=== PATIENT | female | born 1990 | race Caucasian/White ===

== ENCOUNTER 2022-10-13 20:36 | Emergency (ER) | payer MEDICAID ==
[~2022-10-13] VITALS: Ht 165.1 cm; Wt 80.0 kg
[~2022-10-13 20:36] MED LIST: NO HOME MEDS
[2022-10-13 21:35] VITALS: BP 142/97
[2022-10-13] MEDS ORDERED: diazepam inj 5 MG/ML inj. IV ONE (22:45)
[2022-10-13] MEDS ORDERED: ringers solution, lacted 1,000 ML IV ONE (22:45)
[2022-10-13 23:09] LABS: BASOPHILS # (AUTO) 0.1 X10'3 (0-0.2); BASOPHILS % (AUTO) 0.9 % (0-1); EOSINOPHILS % (AUTO) 0.4 % (0-6); HEMATOCRIT 43.5 % (35.0-45.0); HEMOGLOBIN 14.5 g/dl (12.0-16.0); LYMPHOCYTES # (AUTO) 3.8 X10'3 (1.1-4.8); LYMPHOCYTES % (AUTO) 52.5 % (21-51); MEAN CORPUSCULAR HEMOGLOBIN 30.2 PG (27.0-31.0); MEAN CORPUSCULAR HGB CONC 33.3 g/dL (33.0-36.5); MEAN CORPUSCULAR VOLUME 90.7 FL (78-98); MEAN PLATELET VOLUME 9.1 FL (7.4-10.4); MONOCYTES # (AUTO) 0.4 X10'3 (0-0.9); MONOCYTES % (AUTO) 5.8 % (2-12); NEUTROPHILS # (AUTO) 2.9 X10'3 (1.8-7.7); NEUTROPHILS % (AUTO) 40.4 % (42-75); PLATELET COUNT 425 X10'3 (140-440); RED CELL DISTRIBUTION WIDTH 14.7 % (11.5-14.5); WHITE BLOOD COUNT 7.2 X10'3 (4.5-11.0)
[2022-10-13 23:21] LABS: ALANINE AMINOTRANSFERASE 81 U/L (12-78); ALBUMIN 4.3 G/DL (3.4-5.0); ALBUMIN/GLOBULIN RATIO 1.3 (1.1-1.5); ALKALINE PHOSPHATASE 147 IU/L (46-116); ANION GAP 14 (8-16); ASPARTATE AMINO TRANSFERASE 86 U/L (10-37); BILIRUBIN,TOTAL 0.6 MG/DL (0.1-1.0); BLOOD UREA NITROGEN 17 MG/DL (7-18); BUN/CREATININE RATIO 22.1 (6.6-38.0); CALCIUM 8.6 MG/DL (8.5-10.1); CHLORIDE 100 MMOL/L (99-107); CREATININE 0.77 MG/DL (0.40-0.90); GLUCOSE 125 MG/DL (70-104); POTASSIUM 4.2 MMOL/L (3.5-5.1); SODIUM 139 MMOL/L (135-145); TOTAL CARBON DIOXIDE 25.5 MMOL/L (24-32); TOTAL PROTEIN 7.7 G/DL (6.4-8.2); eGFR 86 ML/MIN
[2022-10-13 23:57] LABS: PLATELET ESTIMATE NORMAL; SMUDGE CELLS FEW; STOMATOCYTES 1+; TOTAL CELLS COUNTED 100
[2022-10-14] MEDS ORDERED: CHLO25CA10 PO (00:48)
== END 2022-10-14 01:18 | disposition home or self-care (01) ==
LOC: ER 20:37
DX: F10.939 Alcohol use, unspecified with withdrawal, unspecified (principal); Z88.2 Allergy status to sulfonamides; Z88.8 Allergy status to other drugs, medicaments and biological substances; Z79.899 Other long term (current) drug therapy; Y90.9 Presence of alcohol in blood, level not specified
CPT/HCPCS: 36415; 80053; 85007; 85025; 96374; 99283; J3360; J7120

== ENCOUNTER 2023-04-11 11:11 | Inpatient (IN) | payer MEDICAID ==
[~2023-04-11] VITALS: Ht 165.1 cm; Wt 89.8 kg
[~2023-04-11 11:11] MED LIST changes: +CHLO25CA10 PO
[2023-04-11 11:57] LABS: BASOPHILS # (AUTO) 0.1 X10'3 (0-0.2); BASOPHILS % (AUTO) 1.2 % (0-1); EOSINOPHILS % (AUTO) 0.1 % (0-6); HEMATOCRIT 41.4 % (35.0-45.0); HEMOGLOBIN 13.8 g/dl (12.0-16.0); LYMPHOCYTES # (AUTO) 1.7 X10'3 (1.1-4.8); LYMPHOCYTES % (AUTO) 28.2 % (21-51); MEAN CORPUSCULAR HEMOGLOBIN 28.2 PG (27.0-31.0); MEAN CORPUSCULAR HGB CONC 33.2 g/dL (33.0-36.5); MEAN CORPUSCULAR VOLUME 84.8 FL (78-98); MEAN PLATELET VOLUME 9.4 FL (7.4-10.4); MONOCYTES # (AUTO) 0.6 X10'3 (0-0.9); MONOCYTES % (AUTO) 9.5 % (2-12); NEUTROPHILS # (AUTO) 3.7 X10'3 (1.8-7.7); PLATELET COUNT 385 X10'3 (140-440); RED BLOOD COUNT 4.88 X10'6 (4.20-5.60); RED CELL DISTRIBUTION WIDTH 15.7 % (11.5-14.5); WHITE BLOOD COUNT 6.1 X10'3 (4.5-11.0)
[2023-04-11 12:17] LABS: ALANINE AMINOTRANSFERASE 102 U/L (12-78); ALBUMIN 4.2 G/DL (3.4-5.0); ALBUMIN/GLOBULIN RATIO 0.9 (1.1-1.5); ALKALINE PHOSPHATASE 134 IU/L (46-116); ANION GAP 19 (8-16); ASPARTATE AMINO TRANSFERASE 128 U/L (10-37); BILIRUBIN,TOTAL 0.4 MG/DL (0.1-1.0); BLOOD UREA NITROGEN 5 MG/DL (7-18); BUN/CREATININE RATIO 6.5 (10.0-20.0); CALCIUM 9.5 MG/DL (8.5-10.1); CHLORIDE 98 MMOL/L (99-107); CREATININE 0.77 MG/DL (0.40-0.90); GLUCOSE 124 MG/DL (70-104); POTASSIUM 3.5 MMOL/L (3.5-5.1); SODIUM 140 MMOL/L (135-145); eCRCL 92 ML/MIN; eGFR 85 ML/MIN
[2023-04-11 12:28] LABS: ETHANOL 237 MG/DL (<10); THYROID STIMULATING HORMONE 2.32 ulU/ml (0.34-4.50)
[2023-04-11 13:20] LABS: URINE HCG NEGATIVE (NEG)
[2023-04-11 13:25] LABS: BILIRUBIN,URINE NEGATIVE (Neg); CLARITY,URINE CLOUDY (Clear); COLOR,URINE YELLOW (Yellow); GLUCOSE, URINE NEGATIVE (Neg); KETONES,URINE TRACE mg/dl (Neg); LEUKOCYTE ESTERASE ,URINE NEGATIVE (Neg); NITRITES, URINE POSITIVE (Neg); OCCULT BLOOD,URINE SMALL (Neg); PROTEIN,URINE 100 mg/dl (Neg); UROBILINOGEN,URINE 0.2 E.U/dL (0.2-1.0)
[2023-04-11 13:28] LABS: URINE AMPHETAMINE SCREEN NEGATIVE (Neg); URINE BARBITUATE SCREEN NEGATIVE (Neg); URINE BENZODIAZEPINES SCREEN NEGATIVE (Neg); URINE CANNABINOID SCREEN NEGATIVE (Neg); URINE COCAINE SCREEN NEGATIVE (Neg); URINE METHADONE SCREEN NEGATIVE (Neg); URINE OPIATE SCREEN NEGATIVE (Neg); URINE PHENCYCLIDINE SCREEN NEGATIVE (Neg)
[2023-04-11] MEDS ORDERED: LORazepam 1 MG tablet PO ONE (13:30)
--- NOTE | 2023-04-11 13:35 | NUR ---
Pt currently verbally expressing feelings of detox, pt showing signs of anxiety. Spoke with Dr Eddy verbal given for po ativan.
[2023-04-11 13:57] LABS: UA COLLECTION TYPE CLN CATCH MIDSTREAM
[2023-04-11 13:58] LABS: MUCUS STRANDS MODERATE /LPF (Neg); SQUAMOUS EPITHELIAL CELL,UR MODERATE /LPF (FEW)
[2023-04-11 13:59] LABS: BACTERIA,URINE 2+ /HPF (Neg); RBC,URINE 0-2 /HPF (0-2)
[2023-04-11] MEDS ORDERED: FOSFOMYCIN TROMETHAMINE 3 GM PACKET PO ONE (14:05)
--- NOTE | 2023-04-11 16:55 | NUR ---
Pt. was transferred to the unit accompanied by Dunia. She is in green scrubs and sitting up quietly in bed at this time. Pt. was provided with ice water and provided education by this manual writer on the importance of fluids to help flush out alcohol. Pt. reported understanding.
--- NOTE | 2023-04-11 17:44 | NUR ---
Pt. is sitting up eating dinner at this time.
[2023-04-11] MEDS ORDERED: normal saline 1000ml 1,000 ML IV ONE (18:00)
[2023-04-11] MEDS ORDERED: LORazepam 2 mg/ml vial IV ONE ×2 (18:00→18:25)
[2023-04-11] MEDS ORDERED: folic acid 1mg/0.2ml inj IV ONE (18:00)
[2023-04-11] MEDS ORDERED: thiamine 100mg/ml 2ml inj. IV ONE (18:00)
--- NOTE | 2023-04-11 18:17 | NUR ---
Pt. is c/o and exhibiting s/s of alcohol withdrawal AEB bilateral upper extremity tremors, restlessness, sweating, and an elevated blood pressure and pulse of 122. This was endorsed to ALEXSANDER Burleson who ordered IV normal saline, 2mg of IV Ativan, 1mg of folic acid IV, and thiamine 100mg IV. This was endorsed to Marshal aguilar. Pt. reports understanding and is in agreeance with plan.
--- NOTE | 2023-04-11 19:00 | NUR ---
The patient is resting on her bed. She is tremulous, anxious and HR in the 140's when up to use the bathroom. IV placed in the right hand 22 gauge after 5 unsuccessful attempts. She reports she has been very depressed and has not been sleeping well. She reports her energy level is low and that she has not showered for several days. She has been drinking daily and her BA on arrival to the ER was 0.237
[2023-04-11] MEDS ORDERED: SERT100T PO (21:23)
[2023-04-11] MEDS ORDERED: LORazepam 1 MG tablet PO PRN (22:00)
--- NOTE | 2023-04-11 22:14 | NUR ---
The patient has been accepted to [facility]
[2023-04-11] MEDS ORDERED: mag hydrox/Alum hydrox/simeth 30ml oral suspension PO PRN (22:40)
[2023-04-11] MEDS ORDERED: magnesium hydroxide 30ml (MOM) UD suspension PO PRN (22:40)
[2023-04-11] MEDS ORDERED: acetaminophen 325mg tablet PO PRN ×2 (22:40)
[2023-04-11] MEDS ORDERED: loperamide 2mg capsule PO PRN (22:40)
[2023-04-11 23:36] VITALS: RESP 18; O2SAT 99
[2023-04-11] MEDS: LORazepam 0.5 MG tablet PO PRN (23:43)
[2023-04-11] MEDS: traZODone 50mg tablet PO PRN (23:43)
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
[2023-04-12 07:00] VITALS: BP 132/100; PULSE 95; RESP 14; TEMP 98.8; O2SAT 98
[2023-04-12] MEDS ORDERED: sertraline 50mg tablet PO SCH (08:00)
[2023-04-12] MEDS: LORazepam 0.5 MG tablet PO PRN ×3 (08:33→20:44)
[2023-04-12] MEDS: thiamine 100mg tablet PO SCH ×2 (08:33→20:44)
[2023-04-12] MEDS: folic acid 1mg tablet PO SCH (08:33)
[2023-04-12] MEDS: multivitamins, therapeutics tablet PO SCH (08:33)
[2023-04-12 09:10] LABS: CHOLESTEROL 258 MG/DL (0-200); LDL CHOLESTEROL 61 MG/DL (50-100); TRIGLYCERIDES 56 MG/DL (20-135)
[2023-04-12 09:32] LABS: HEMOGLOBIN A1C 5.1 % (4.5-6.2)
[2023-04-12 09:43] LABS: HDL CHOLESTEROL > 155 MG/DL (35-60)
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
[2023-04-12 19:00] VITALS: BP 142/83; PULSE 101; RESP 14; TEMP 98.4; O2SAT 98
[2023-04-12] MEDS ORDERED: ondansetron 4mg rapidly disintigrating tab PO ONE (19:25)
[2023-04-12] MEDS ORDERED: LORazepam 0.5 MG tablet PO ONE (20:30)
[2023-04-12] MEDS: traZODone 50mg tablet PO PRN (20:44)
[2023-04-13] MEDS ORDERED: traZODone 50mg tablet PO ONE (00:10)
--- NOTE | 2023-04-13 03:17 | NUR ---
RN PROGRESS NOTE: LEGAL HOLD: 5150 for DTS PROBLEM: Client reported drinking 750 ml daily. Her last drink was 48 hours ago. She has a history of depression and a recent breakup with her boyfriend. INVENTIONS: Assessments. RESPONSE: Client is on a CIWA. She scored 10 at 20:00 and was given 0.5 mg Ativan Tab PO. She scored 8 at 23:55. Client c/o insomnia and was given a second dose of 50 mg Trazodone Tab PO with good effect. She reports high anxiety and has mild tremors. Client reported nausea early in shift and was given 4 mg Zofran ODT. Saline lock in right hand was removed. Cooperative. Took PM meds. Depressed affect and mood. PLAN: Requires medication adjustment.
[2023-04-13 07:00] VITALS: RESP 14; O2SAT 98
[2023-04-13 08:00] VITALS: BP 145/89; PULSE 100; RESP 16; TEMP 97.9; O2SAT 98
[2023-04-13] MEDS: thiamine 100mg tablet PO SCH ×2 (08:54→20:09)
[2023-04-13] MEDS: multivitamins, therapeutics tablet PO SCH (08:54)
[2023-04-13] MEDS: venlafaxine XR 75mg capsule (Q24H) PO SCH (08:54)
[2023-04-13] MEDS: folic acid 1mg tablet PO SCH (08:54)
[2023-04-13] MEDS: LORazepam 0.5 MG tablet PO PRN ×2 (09:52→20:10)
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
[2023-04-13] MEDS: traZODone 50mg tablet PO PRN (20:09)
[2023-04-13 20:52] VITALS: BP 139/92; PULSE 105; RESP 16; TEMP 98.6; O2SAT 97
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
[2023-04-14 07:00] VITALS: RESP 16; O2SAT 98
[2023-04-14] MEDS: folic acid 1mg tablet PO SCH (07:47)
[2023-04-14] MEDS: LORazepam 0.5 MG tablet PO PRN (07:47)
[2023-04-14] MEDS: thiamine 100mg tablet PO SCH (07:47)
[2023-04-14] MEDS: multivitamins, therapeutics tablet PO SCH (07:47)
[2023-04-14] MEDS: venlafaxine XR 75mg capsule (Q24H) PO SCH (07:47)
[2023-04-14 08:00] VITALS: BP 126/76; PULSE 117; RESP 16; O2SAT 98
[2023-04-14] MEDS ORDERED: NALT50TA PO (10:45)
[2023-04-14] MEDS ORDERED: FOLI1TAB27 PO (10:45)
[2023-04-14] MEDS ORDERED: thiamine tablet PO (10:45)
[2023-04-14] MEDS ORDERED: Lorazepam PO (10:45)
[2023-04-14] MEDS ORDERED: MULT-25 PO (10:45)
[2023-04-14] MEDS ORDERED: TRAZ-251 PO (10:45)
[2023-04-14] MEDS ORDERED: VENL75CA61 PO (10:45)
--- NOTE | 2023-04-14 11:18 | NUR ---
DISCHARGE NOTE Patient discharged off the unit, escorted by two family members at 1118. Patient seen by ALEXSANDER Ferraro this AM. She expresses readiness for discharge. Denies S/I, reports anxiety is a 2/10. Reviewed discharge information with patient and she verbalizes understanding. Belongings returned to patient and given discharge packet.
== END 2023-04-14 11:18 | disposition home or self-care (01) | DRG 751 ==
LOC: ER 11:11 → ED HOLD 21:25 → ADULT MH 22:31
PROVIDERS: ADMIT Psychiatry & Neurology Psychiatry; ATTEND Psychiatry & Neurology Psychiatry
DX: F33.2 Major depressive disorder, recurrent severe without psychotic features (principal); R45.851 Suicidal ideations; E66.3 Overweight; Z20.822 Contact with and (suspected) exposure to COVID-19; F10.130 Alcohol abuse with withdrawal, uncomplicated; F41.9 Anxiety disorder, unspecified; G47.00 Insomnia, unspecified; R63.0 Anorexia; Z87.442 Personal history of urinary calculi; Z88.2 Allergy status to sulfonamides; Z88.3 Allergy status to other anti-infective agents; Z68.32 Body mass index [BMI] 32.0-32.9, adult; Z79.899 Other long term (current) drug therapy
CPT/HCPCS: 36415; 80053; 80061; 80305; 80320; 81001; 81025; 83036; 84443; 85025; 87081; 87811; 99285; J2060; J3411; J3490; J7030

== ENCOUNTER 2023-11-21 11:23 | Emergency (ER) | payer MEDICAID ==
[~2023-11-21] VITALS: Ht 167.6 cm; Wt 79.0 kg
[~2023-11-21 11:23] MED LIST changes: -CHLO25CA10 PO; +FOLI1TAB27 PO; +Lorazepam PO; +MULT-25 PO; +NALT50TA PO; -NO HOME MEDS; +TRAZ-251 PO; +VENL75CA61 PO; +thiamine tablet PO
[2023-11-21 13:26] LABS: BASOPHILS % (AUTO) 0.7 % (0-1); EOSINOPHILS # (AUTO) 0.1 X10'3 (0-0.9); EOSINOPHILS % (AUTO) 2.4 % (0-6); HEMATOCRIT 38.8 % (35.0-45.0); HEMOGLOBIN 12.8 g/dl (12.0-16.0); LYMPHOCYTES % (AUTO) 38.1 % (21-51); MEAN CORPUSCULAR HEMOGLOBIN 28.4 PG (27.0-31.0); MEAN CORPUSCULAR HGB CONC 32.8 g/dL (33.0-36.5); MEAN CORPUSCULAR VOLUME 86.4 FL (78-98); MEAN PLATELET VOLUME 10.2 FL (7.4-10.4); MONOCYTES # (AUTO) 0.3 X10'3 (0-0.9); MONOCYTES % (AUTO) 5.9 % (2-12); NEUTROPHILS # (AUTO) 2.7 X10'3 (1.8-7.7); NEUTROPHILS % (AUTO) 52.9 % (42-75); PLATELET COUNT 356 X10'3 (140-440); RED CELL DISTRIBUTION WIDTH 16.7 % (11.5-14.5); WHITE BLOOD COUNT 5.1 X10'3 (4.5-11.0)
[2023-11-21 13:53] LABS: ALANINE AMINOTRANSFERASE 52 U/L (12-78); ALBUMIN 3.7 G/DL (3.4-5.0); ALBUMIN/GLOBULIN RATIO 0.8 (1.1-1.5); ALKALINE PHOSPHATASE 70 IU/L (46-116); ANION GAP 12 (8-16); ASPARTATE AMINO TRANSFERASE 32 U/L (10-37); BILIRUBIN,TOTAL 0.2 MG/DL (0.1-1.0); BLOOD UREA NITROGEN 9 MG/DL (7-18); BUN/CREATININE RATIO 11.7 (10.0-20.0); CALCIUM 8.2 MG/DL (8.5-10.1); CHLORIDE 111 MMOL/L (99-107); CREATININE 0.77 MG/DL (0.40-0.90); GLUCOSE 102 MG/DL (70-104); SODIUM 148 MMOL/L (135-145); TOTAL CARBON DIOXIDE 24.6 MMOL/L (24-32); TOTAL PROTEIN 8.2 G/DL (6.4-8.2); eCRCL 95 ML/MIN; eGFR 85 ML/MIN
[2023-11-21 13:54] LABS: URINE HCG NEGATIVE (NEG)
[2023-11-21 13:56] LABS: URINE AMPHETAMINE SCREEN NEGATIVE (Neg); URINE BARBITUATE SCREEN NEGATIVE (Neg); URINE BENZODIAZEPINES SCREEN NEGATIVE (Neg); URINE CANNABINOID SCREEN NEGATIVE (Neg); URINE COCAINE SCREEN NEGATIVE (Neg); URINE METHADONE SCREEN NEGATIVE (Neg); URINE OPIATE SCREEN NEGATIVE (Neg); URINE PHENCYCLIDINE SCREEN NEGATIVE (Neg)
[2023-11-21 13:56] LABS: ETHANOL 361 MG/DL (<10)
[2023-11-21 13:57] LABS: BILIRUBIN,URINE NEGATIVE (Neg); CLARITY,URINE CLEAR (Clear); COLOR,URINE YELLOW (Yellow); GLUCOSE, URINE NEGATIVE (Neg); KETONES,URINE NEGATIVE (Neg); LEUKOCYTE ESTERASE ,URINE NEGATIVE (Neg); NITRITES, URINE NEGATIVE (Neg); OCCULT BLOOD,URINE LARGE (Neg); PROTEIN,URINE NEGATIVE (Neg); UROBILINOGEN,URINE 0.2 E.U/dL (0.2-1.0)
[2023-11-21 14:02] LABS: UA COLLECTION TYPE CLN CATCH MIDSTREAM
[2023-11-21 14:04] LABS: SQUAMOUS EPITHELIAL CELL,UR FEW /LPF (FEW)
[2023-11-21 14:05] LABS: BACTERIA,URINE NONE SEEN /HPF (Neg); RBC,URINE 0-2 /HPF (0-2); WBC,URINE NONE SEEN /HPF (0-4)
[2023-11-21] MEDS ORDERED: CLON0.1T2 PO (15:23)
[2023-11-21] MEDS ORDERED: VENL150C58 PO (15:30)
[2023-11-21] MEDS ORDERED: cloNIDine 0.1 mg tablet PO PRN (16:00)
[2023-11-21] MEDS: diphenhydrAMINE 25mg capsule PO ONE (16:16)
[2023-11-21] MEDS: LORazepam 1 MG tablet PO ONE (16:16)
[2023-11-21 19:29] VITALS: BP 117/64; PULSE 156; RESP 20; TEMP 97.8; O2SAT 92
[2023-11-22] MEDS ORDERED: venlafaxine XR 75mg capsule (Q24H) PO SCH (08:00)
== END 2023-11-21 19:29 | disposition home or self-care (01) ==
LOC: ER 11:24
DX: F10.129 Alcohol abuse with intoxication, unspecified (principal); Z20.822 Contact with and (suspected) exposure to COVID-19; Z88.2 Allergy status to sulfonamides; Z79.899 Other long term (current) drug therapy; Y90.9 Presence of alcohol in blood, level not specified
CPT/HCPCS: 36415; 80053; 80305; 80320; 81001; 81025; 85025; 87811; 99284; Q0163; J8597

== ENCOUNTER 2024-01-22 23:47 | Inpatient (IN) | payer MEDICAID ==
[~2024-01-22] VITALS: Ht 165.1 cm; Wt 81.1 kg
[~2024-01-22 23:47] MED LIST changes: +CLON0.1T2 PO; -Lorazepam PO; -MULT-25 PO; -NALT50TA PO; -TRAZ-251 PO; +VENL150C58 PO; -VENL75CA61 PO
[2024-01-23] VITALS (25 sets, daily range): BP systolic 88–113; BP diastolic 40–66; PULSE 70–102; RESP 10–20; O2SAT 93–100
[2024-01-23] MEDS ORDERED: charcoal/sorbitol 25GM/120ML oral SUSPension PO STA (00:10)
[2024-01-23 00:26] LABS: BASOPHILS % (AUTO) 0.7 % (0-1); EOSINOPHILS # (AUTO) 0.1 X10'3 (0-0.9); EOSINOPHILS % (AUTO) 2.4 % (0-6); HEMATOCRIT 35.1 % (35.0-45.0); HEMOGLOBIN 11.7 g/dl (12.0-16.0); LYMPHOCYTES # (AUTO) 3.1 X10'3 (1.1-4.8); LYMPHOCYTES % (AUTO) 49.1 % (21-51); MEAN CORPUSCULAR HEMOGLOBIN 28.2 PG (27.0-31.0); MEAN CORPUSCULAR HGB CONC 33.2 g/dL (33.0-36.5); MEAN CORPUSCULAR VOLUME 84.8 FL (78-98); MEAN PLATELET VOLUME 9.3 FL (7.4-10.4); MONOCYTES # (AUTO) 0.4 X10'3 (0-0.9); MONOCYTES % (AUTO) 5.8 % (2-12); NEUTROPHILS # (AUTO) 2.7 X10'3 (1.8-7.7); PLATELET COUNT 472 X10'3 (140-440); RED BLOOD COUNT 4.14 X10'6 (4.20-5.60); RED CELL DISTRIBUTION WIDTH 17.6 % (11.5-14.5); WHITE BLOOD COUNT 6.3 X10'3 (4.5-11.0)
[2024-01-23] MEDS: charcoal/sorbitol 50gm/240ml suspension PO STA (00:33)
[2024-01-23 00:45] LABS: ALBUMIN 3.7 G/DL (3.4-5.0); ANION GAP 9 (8-16); BLOOD UREA NITROGEN 12 MG/DL (7-18); BUN/CREATININE RATIO 15.4 (10.0-20.0); CALCIUM 8.4 MG/DL (8.5-10.1); CHLORIDE 105 MMOL/L (99-107); CREATININE 0.78 MG/DL (0.40-0.90); ETHANOL 266 MG/DL (<10); GLUCOSE 139 MG/DL (70-104); POTASSIUM 3.7 MMOL/L (3.5-5.1); SALICYLATE 1.4 MG/DL (4.0-20.0); SODIUM 141 MMOL/L (135-145); TOTAL CARBON DIOXIDE 26.8 MMOL/L (24-32); eCRCL 91 ML/MIN; eGFR 84 ML/MIN
[2024-01-23 00:56] LABS: ACETAMINOPHEN < 2.0 UG/ML (10-30)
[2024-01-23] MEDS: ringers solution, lacted 1,000 ML IV ONE ×2 (01:05→10:37)
[2024-01-23 01:12] LABS: ALANINE AMINOTRANSFERASE 29 U/L (12-78); ALKALINE PHOSPHATASE 66 IU/L (46-116); ASPARTATE AMINO TRANSFERASE 17 U/L (10-37); BILIRUBIN,TOTAL 0.1 MG/DL (0.1-1.0); TOTAL PROTEIN 7.4 G/DL (6.4-8.2)
[2024-01-23 01:13] LABS: BILIRUBIN,DIRECT < 0.1 MG/DL (0-0.3)
[2024-01-23] MEDS ORDERED: naloxone 2mg/2ml inj 2 MG in normal saline 500ml IV soln 498 ML IV SCH (01:25)
[2024-01-23] MEDS: NORepinephrine 8mg/ 250ml NS 250 ML IV SCH (02:39)
[2024-01-23] MEDS: FENTANYL-0.9 % NACL/PF 100 ML IV SCH (02:40)
[2024-01-23] MEDS: midazolam 100mg in NS 100ml 100 ML IV SCH (02:41)
[2024-01-23 02:42] LABS: ABG BASE EXCESS -7.5 mmol/L (-2.0-2.0); ABG OXYGEN SATURATION 97.7 % (94-97); ABG PCO2 (T) 37.5 mmHg (32.0-45.0); ABG PH (T) 7.302 (7.350-7.450); ABG PO2 (T) 122.9 mmHg (75.0-100.0); FCOHb 0.3 % (0.0-3.9); FHHb 2.3 % (0.0-5.0); FMetHb 0.4 % (0.0-1.5); MODE VENT - AC; PATIENT TEMPERATURE 37.5; PEEP 5 cm H2O; RESPIRATORY RATE 12 b/min; TIDAL VOLUME 400 mL; TOTAL HEMOGLOBIN 12.4 G/dl (12.0-16.0)
[2024-01-23] MEDS: rocuronium 10mg/ml inj IV STA (02:42)
[2024-01-23] MEDS: ketamine 50 mg/ml 10ml vial IV STA (02:42)
[2024-01-23 04:10] LABS: BILIRUBIN,URINE NEGATIVE (Neg); CLARITY,URINE CLEAR (Clear); COLOR,URINE YELLOW (Yellow); GLUCOSE, URINE NEGATIVE (Neg); KETONES,URINE NEGATIVE (Neg); LEUKOCYTE ESTERASE ,URINE NEGATIVE (Neg); NITRITES, URINE NEGATIVE (Neg); OCCULT BLOOD,URINE NEGATIVE (Neg); PROTEIN,URINE NEGATIVE (Neg); UROBILINOGEN,URINE 0.2 E.U/dL (0.2-1.0)
[2024-01-23 04:11] LABS: URINE HCG NEGATIVE (NEG)
[2024-01-23 04:12] LABS: UA COLLECTION TYPE FOLEY CATH
[2024-01-23] MEDS ORDERED: acetaminophen 325mg tablet PO PRN (04:15)
[2024-01-23] MEDS ORDERED: magnesium hydroxide 30ml (MOM) UD suspension PO PRN (04:15)
[2024-01-23] MEDS ORDERED: NORepinephrine 8mg/ 250ml NS 250 ML IV PRN (04:15)
[2024-01-23] MEDS ORDERED: ondansetron/PF 4mg/2ml inj IV PRN (04:15)
[2024-01-23] MEDS ORDERED: albuterol 2.5 MG/3 ML nebule NEB PRN (04:15)
[2024-01-23] MEDS ORDERED: morphine 4 MG/ML inj SYRINge IV PRN (04:15)
[2024-01-23] MEDS ORDERED: morphine 2 MG/ML inj. syringe IV PRN (04:15)
[2024-01-23 04:32] LABS: URINE AMPHETAMINE SCREEN NEGATIVE (Neg); URINE BARBITUATE SCREEN NEGATIVE (Neg); URINE BENZODIAZEPINES SCREEN NEGATIVE (Neg); URINE CANNABINOID SCREEN NEGATIVE (Neg); URINE COCAINE SCREEN NEGATIVE (Neg); URINE METHADONE SCREEN NEGATIVE (Neg); URINE PHENCYCLIDINE SCREEN NEGATIVE (Neg)
[2024-01-23] MEDS ORDERED: ONDA8TAB13 PO (07:25)
[2024-01-23] MEDS: docusate sod 100mg capsule PO SCH (07:50)
[2024-01-23] MEDS: folic acid 1mg tablet PO SCH (10:58)
[2024-01-23] MEDS: enoxaparin 40mg/0.4ml syringe SUBCUT SCH (10:58)
[2024-01-23] MEDS: thiamine 100mg tablet PO SCH (10:59)
[2024-01-23] MEDS: multivitamins, therapeutics tablet PO SCH (10:59)
[2024-01-23] MEDS: famotidine 20mg tablet PO SCH (10:59)
[2024-01-23] MEDS: acetaminophen 325mg tablet PO PRN (11:00)
[2024-01-23] MEDS: naloxone 2mg/2ml inj IV STA ×3 (13:57→13:58)
[2024-01-23] MEDS: ketamine 10mg/ml 20ml inj vial IV ONE (13:59)
[2024-01-23] MEDS: ringers solution, lacted 1,000 ML IV SCH (14:11)
[2024-01-24] VITALS (14 sets, daily range): BP systolic 91–138; BP diastolic 48–85; PULSE 75–116; RESP 13–18; TEMP 97.6–99.9; O2SAT 94–100
[2024-01-24 02:07] LABS: BASOPHILS % (AUTO) 0.4 % (0-1); EOSINOPHILS # (AUTO) 0.2 X10'3 (0-0.9); EOSINOPHILS % (AUTO) 3.4 % (0-6); HEMATOCRIT 27.4 % (35.0-45.0); LYMPHOCYTES # (AUTO) 2.4 X10'3 (1.1-4.8); LYMPHOCYTES % (AUTO) 35.3 % (21-51); MEAN CORPUSCULAR HGB CONC 32.8 g/dL (33.0-36.5); MEAN CORPUSCULAR VOLUME 85.3 FL (78-98); MEAN PLATELET VOLUME 9.1 FL (7.4-10.4); MONOCYTES # (AUTO) 0.6 X10'3 (0-0.9); MONOCYTES % (AUTO) 8.5 % (2-12); NEUTROPHILS # (AUTO) 3.6 X10'3 (1.8-7.7); NEUTROPHILS % (AUTO) 52.4 % (42-75); PLATELET COUNT 254 X10'3 (140-440); RED BLOOD COUNT 3.21 X10'6 (4.20-5.60); RED CELL DISTRIBUTION WIDTH 17.5 % (11.5-14.5); WHITE BLOOD COUNT 6.9 X10'3 (4.5-11.0)
[2024-01-24 02:18] LABS: ALBUMIN 2.7 G/DL (3.4-5.0); ANION GAP 5 (8-16); BLOOD UREA NITROGEN 9 MG/DL (7-18); BUN/CREATININE RATIO 14.3 (10.0-20.0); CALCIUM 8.4 MG/DL (8.5-10.1); CHLORIDE 102 MMOL/L (99-107); CREATININE 0.63 MG/DL (0.40-0.90); GLUCOSE 106 MG/DL (70-104); POTASSIUM 3.6 MMOL/L (3.5-5.1); SODIUM 135 MMOL/L (135-145); TOTAL CARBON DIOXIDE 27.8 MMOL/L (24-32); eCRCL 112 ML/MIN; eGFR > 90 ML/MIN
[2024-01-24 20:45] LABS: THYROID STIMULATING HORMONE 2.16 ulU/ml (0.34-4.50)
[2024-01-25 06:00] VITALS: BP 136/78; PULSE 95; RESP 14; TEMP 97.4; O2SAT 98
[2024-01-25 06:24] LABS: BASOPHILS % (AUTO) 0.6 % (0-1); EOSINOPHILS # (AUTO) 0.3 X10'3 (0-0.9); EOSINOPHILS % (AUTO) 4.7 % (0-6); HEMATOCRIT 29.8 % (35.0-45.0); HEMOGLOBIN 9.5 g/dl (12.0-16.0); LYMPHOCYTES # (AUTO) 1.7 X10'3 (1.1-4.8); LYMPHOCYTES % (AUTO) 27.6 % (21-51); MEAN CORPUSCULAR HGB CONC 32.1 g/dL (33.0-36.5); MEAN CORPUSCULAR VOLUME 84.2 FL (78-98); MONOCYTES # (AUTO) 0.4 X10'3 (0-0.9); MONOCYTES % (AUTO) 7.1 % (2-12); NEUTROPHILS # (AUTO) 3.7 X10'3 (1.8-7.7); PLATELET COUNT 246 X10'3 (140-440); RED BLOOD COUNT 3.53 X10'6 (4.20-5.60); RED CELL DISTRIBUTION WIDTH 17.1 % (11.5-14.5); WHITE BLOOD COUNT 6.1 X10'3 (4.5-11.0)
[2024-01-25 06:37] LABS: ANION GAP 11 (8-16); BLOOD UREA NITROGEN 4 MG/DL (7-18); BUN/CREATININE RATIO 6.7 (10.0-20.0); CALCIUM 8.3 MG/DL (8.5-10.1); CHLORIDE 105 MMOL/L (99-107); GLUCOSE 91 MG/DL (70-104); POTASSIUM 3.4 MMOL/L (3.5-5.1); SODIUM 143 MMOL/L (135-145); TOTAL CARBON DIOXIDE 27.2 MMOL/L (24-32); eCRCL 118 ML/MIN; eGFR > 90 ML/MIN
[2024-01-25 08:00] VITALS: RESP 18; O2SAT 100
[2024-01-25 09:19] VITALS: PULSE 114; RESP 16; O2SAT 96
[2024-01-25] MEDS: venlafaxine XR 75mg capsule (Q24H) PO SCH (09:23)
[2024-01-25 10:00] VITALS: BP 126/80; PULSE 100; RESP 18; TEMP 99; O2SAT 96
== END 2024-01-25 13:23 | DRG 817 ==
LOC: ER 23:50 → ED HOLD 01-23 04:23 → UNDOADMIN 01-23 04:23 → CICU 2S 01-23 05:43 → SUR 3N 01-24 10:00
PROVIDERS: ADMIT Internal Medicine Pulmonary Disease; ATTEND Internal Medicine Pulmonary Disease
PROC: 05H533Z Insertion of Infusion Device into Right Subclavian Vein, Percutaneous Approach (ICD-10-PCS; principal; 2024-01-23)
PROC: B546ZZA Ultrasonography of Right Subclavian Vein, Guidance (ICD-10-PCS; 2024-01-23)
PROC: 5A1935Z Respiratory Ventilation, Less than 24 Consecutive Hours (ICD-10-PCS; 2024-01-23)
PROC: 0BH17EZ Insertion of Endotracheal Airway into Trachea, Via Natural or Artificial Opening (ICD-10-PCS; 2024-01-23)
DX: T46.5X2A Poisoning by other antihypertensive drugs, intentional self-harm, initial encounter (principal); J96.01 Acute respiratory failure with hypoxia; J69.0 Pneumonitis due to inhalation of food and vomit; R57.1 Hypovolemic shock; F10.129 Alcohol abuse with intoxication, unspecified; F43.10 Post-traumatic stress disorder, unspecified; F32.9 Major depressive disorder, single episode, unspecified; Y90.8 Blood alcohol level of 240 mg/100 ml or more; F41.9 Anxiety disorder, unspecified; I95.9 Hypotension, unspecified; Z88.8 Allergy status to other drugs, medicaments and biological substances; Z88.2 Allergy status to sulfonamides; Y92.89 Other specified places as the place of occurrence of the external cause
CPT/HCPCS: 36415; 36600; 71045; 74018; 80048; 80076; 80305; 80320; 80329; 81003; 81025; 82140; 82803; 84443; 85018; 85025; 87070; 87081; 93005; 94002; 94640; 94760; 94799; 96365; 96367; 96375; 99291; A4615; A4620; A6213; A6258; A6402; A6449; C1751; C1758; G0378; J1650; J3010; J3490; J7030; J7120

== ENCOUNTER 2024-08-13 17:25 | Inpatient (IN) | payer MEDICAID ==
[~2024-08-13] VITALS: Ht 165.1 cm; Wt 83.4 kg
[~2024-08-13 17:25] MED LIST changes: +BENZ1TAB78 PO; +BUSP5TAB26 PO; -CLON0.1T2 PO; +CLON1TAB12 PO; +DIVA125T2 PO; +DIVA250T8 PO; +FOLI0.4T14 PO; -FOLI1TAB27 PO; +NALT50TA5 PO; +ONDA-243 PO; -VENL150C58 PO; +ZIPR20CA12 PO
[2024-08-13 21:38] LABS: BASOPHILS # (AUTO) 0.1 X10'3 (0-0.2); BASOPHILS % (AUTO) 0.6 % (0-1); EOSINOPHILS # (AUTO) 0.1 X10'3 (0-0.9); EOSINOPHILS % (AUTO) 0.6 % (0-6); HEMATOCRIT 39.1 % (35.0-45.0); HEMOGLOBIN 12.9 g/dl (12.0-16.0); LYMPHOCYTES # (AUTO) 2.7 X10'3 (1.1-4.8); LYMPHOCYTES % (AUTO) 29.6 % (21-51); MEAN CORPUSCULAR HEMOGLOBIN 28.9 PG (27.0-31.0); MEAN CORPUSCULAR HGB CONC 33.1 g/dL (33.0-36.5); MEAN CORPUSCULAR VOLUME 87.1 FL (78-98); MEAN PLATELET VOLUME 9.9 FL (7.4-10.4); MONOCYTES # (AUTO) 0.8 X10'3 (0-0.9); NEUTROPHILS # (AUTO) 5.4 X10'3 (1.8-7.7); NEUTROPHILS % (AUTO) 60.2 % (42-75); PLATELET COUNT 411 X10'3 (140-440); RED BLOOD COUNT 4.48 X10'6 (4.20-5.60); RED CELL DISTRIBUTION WIDTH 16.4 % (11.5-14.5)
[2024-08-13] MEDS: LORazepam 2 mg/ml vial IV ONE ×2 (21:41→22:50)
[2024-08-13 21:52] LABS: ALANINE AMINOTRANSFERASE 139 U/L (12-78); ALKALINE PHOSPHATASE 94 IU/L (46-116); ANION GAP 11 (8-16); ASPARTATE AMINO TRANSFERASE 125 U/L (10-37); BILIRUBIN,TOTAL 0.5 MG/DL (0.1-1.0); BLOOD UREA NITROGEN 10 MG/DL (7-18); BUN/CREATININE RATIO 11.9 (10.0-20.0); CALCIUM 8.3 MG/DL (8.5-10.1); CHLORIDE 101 MMOL/L (99-107); CREATININE 0.84 MG/DL (0.40-0.90); ETHANOL 155 MG/DL (<10); GLUCOSE 92 MG/DL (70-104); POTASSIUM 4.5 MMOL/L (3.5-5.1); SODIUM 139 MMOL/L (135-145); TOTAL CARBON DIOXIDE 27.2 MMOL/L (24-32); TOTAL PROTEIN 7.9 G/DL (6.4-8.2); eCRCL 83 ML/MIN; eGFR 77 ML/MIN
[2024-08-13] MEDS: normal saline 1000ml 1,000 ML IV ONE (22:42)
[2024-08-14] MEDS: LORazepam 2 mg/ml vial IV ONE (01:26)
[2024-08-14] MEDS ORDERED: BUSP5TAB3 PO (03:24)
[2024-08-14] MEDS ORDERED: DIVA250T4 PO (03:24)
[2024-08-14] MEDS ORDERED: ZIPR40CA14 (03:24)
[2024-08-14] MEDS ORDERED: BUSP15TA7 PO (03:24)
[2024-08-14] MEDS ORDERED: DIVA500T2 PO (03:24)
[2024-08-14 04:15] LABS: LIPASE 33 U/L (16-77)
[2024-08-14] MEDS ORDERED: ondansetron/PF 4mg/2ml inj IV PRN (04:20)
[2024-08-14] MEDS ORDERED: mag hydrox/Alum hydrox/simeth 30ml oral suspension PO PRN (04:20)
[2024-08-14] MEDS ORDERED: magnesium sulf-water 2g/50mL 50 ML IV PRN (04:20)
[2024-08-14] MEDS ORDERED: cyclobenzaprine 10mg tablet PO PRN (04:20)
[2024-08-14] MEDS ORDERED: haloperidol lactate 5mg/ml inj IM PRN (04:20)
[2024-08-14] MEDS ORDERED: magnesium Cl slow-release 64mg tablet PO PRN (04:20)
[2024-08-14] MEDS ORDERED: potassium Cl 20 mEq SR tablet PO PRN ×2 (04:20)
[2024-08-14] MEDS ORDERED: cloNIDine 0.1 mg tablet PO PRN (04:20)
[2024-08-14] MEDS ORDERED: acetaminophen 325mg tablet PO PRN (04:20)
[2024-08-14] MEDS ORDERED: magnesium sulf-water 4G/100mL 100 ML IV PRN (04:20)
[2024-08-14] MEDS ORDERED: magnesium hydroxide 30ml (MOM) UD suspension PO PRN (04:20)
[2024-08-14] MEDS ORDERED: dicyclomine 10 MG capsule PO PRN (04:20)
[2024-08-14] MEDS ORDERED: LORazepam 2 mg/ml vial IV PRN (04:20)
[2024-08-14] MEDS ORDERED: potassium Cl 40MEQ/1/2NS 520ml 520 ML IV PRN (04:20)
[2024-08-14] MEDS: cloNIDine 0.1 MG/24 HOUR patch (7 day patch) TD SCH (04:54)
[2024-08-14] MEDS: normal saline 1000ml 1,000 ML IV SCH (04:54)
[2024-08-14 05:06] LABS: URINE HCG NEGATIVE (NEG)
[2024-08-14 05:08] LABS: BILIRUBIN,URINE NEGATIVE (Neg); CLARITY,URINE SLIGHTLY CLOUDY (Clear); COLOR,URINE YELLOW (Yellow); GLUCOSE, URINE NEGATIVE (Neg); KETONES,URINE 40 mg/dl (Neg); LEUKOCYTE ESTERASE ,URINE NEGATIVE (Neg); NITRITES, URINE NEGATIVE (Neg); OCCULT BLOOD,URINE LARGE (Neg); PROTEIN,URINE 30 mg/dl (Neg); UROBILINOGEN,URINE 0.2 E.U/dL (0.2-1.0)
[2024-08-14 05:10] LABS: UA COLLECTION TYPE CLN CATCH MIDSTREAM
[2024-08-14 05:13] LABS: BACTERIA,URINE 2+ /HPF (Neg); MUCUS STRANDS MODERATE /LPF (Neg); SQUAMOUS EPITHELIAL CELL,UR FEW /LPF (FEW); WBC,URINE 0-4 /HPF (0-4)
[2024-08-14 05:23] LABS: URINE AMPHETAMINE SCREEN NEGATIVE (Neg); URINE BARBITUATE SCREEN NEGATIVE (Neg); URINE BENZODIAZEPINES SCREEN NEGATIVE (Neg); URINE CANNABINOID SCREEN NEGATIVE (Neg); URINE COCAINE SCREEN NEGATIVE (Neg); URINE METHADONE SCREEN NEGATIVE (Neg); URINE OPIATE SCREEN NEGATIVE (Neg); URINE PHENCYCLIDINE SCREEN NEGATIVE (Neg)
[2024-08-14 05:38] LABS: MAGNESIUM 1.9 MG/DL (1.5-2.4); POTASSIUM 3.5 MMOL/L (3.5-5.1)
[2024-08-14] MEDS: docusate sod 100mg capsule PO SCH (08:28)
[2024-08-14] MEDS: multivitamins, therapeutics tablet PO SCH (08:28)
[2024-08-14] MEDS: heparin, porcine 5000 units/ml vial SQ SCH (08:29)
[2024-08-14] MEDS: K and/or MAG REPLACEMENT MC SCH (08:29)
[2024-08-14] MEDS: folic acid 1mg/0.2ml inj IV SCH (08:33)
[2024-08-14] MEDS: thiamine 100mg/ml 2ml inj. IV SCH (08:33)
[2024-08-14] MEDS: divalproex 250mg tablet, delayed-release PO SCH (09:36)
[2024-08-14] MEDS: busPIRone 15mg tablet PO STA (09:36)
[2024-08-14 15:00] VITALS: BP 110/63; PULSE 89; RESP 13; TEMP 98; O2SAT 98
[2024-08-14 18:00] VITALS: BP 105/66; PULSE 82; RESP 15; TEMP 99; O2SAT 99
[2024-08-14 20:00] VITALS: RESP 15; O2SAT 99
[2024-08-14] MEDS ORDERED: busPIRone 5mg tablet PO SCH (20:00)
[2024-08-14] MEDS: divalproex sodium 500mg tablet.DR PO SCH (20:49)
[2024-08-14] MEDS: busPIRone 15mg tablet PO SCH (20:53)
[2024-08-14] MEDS: LORazepam 2 mg/ml vial IV PRN (21:20)
[2024-08-14 22:00] VITALS: BP 108/61; PULSE 74; RESP 14; TEMP 96.5; O2SAT 95
[2024-08-15] VITALS (8 sets, daily range): BP systolic 105–122; BP diastolic 64–78; PULSE 71–108; RESP 14–19; TEMP 97.3–98.4; O2SAT 97–100
[2024-08-15 06:05] LABS: BASOPHILS % (AUTO) 0.5 % (0-1); EOSINOPHILS # (AUTO) 0.2 X10'3 (0-0.9); EOSINOPHILS % (AUTO) 6.6 % (0-6); HEMATOCRIT 31.5 % (35.0-45.0); HEMOGLOBIN 10.7 g/dl (12.0-16.0); LYMPHOCYTES # (AUTO) 1.5 X10'3 (1.1-4.8); LYMPHOCYTES % (AUTO) 44.1 % (21-51); MEAN CORPUSCULAR HGB CONC 34.1 g/dL (33.0-36.5); MEAN PLATELET VOLUME 10.6 FL (7.4-10.4); MONOCYTES # (AUTO) 0.3 X10'3 (0-0.9); MONOCYTES % (AUTO) 7.3 % (2-12); NEUTROPHILS # (AUTO) 1.4 X10'3 (1.8-7.7); NEUTROPHILS % (AUTO) 41.5 % (42-75); PLATELET COUNT 232 X10'3 (140-440); RED BLOOD COUNT 3.57 X10'6 (4.20-5.60); RED CELL DISTRIBUTION WIDTH 16.1 % (11.5-14.5); WHITE BLOOD COUNT 3.4 X10'3 (4.5-11.0)
[2024-08-15 06:09] LABS: INR 1.1 INR; PROTHROMBIN TIME 11.2 SECONDS (9.0-12.0)
[2024-08-15 06:25] LABS: ALANINE AMINOTRANSFERASE 120 U/L (12-78); ALBUMIN 2.6 G/DL (3.4-5.0); ALBUMIN/GLOBULIN RATIO 0.8 (1.1-1.5); ALKALINE PHOSPHATASE 71 IU/L (46-116); ANION GAP 9 (8-16); ASPARTATE AMINO TRANSFERASE 100 U/L (10-37); BILIRUBIN,TOTAL 0.5 MG/DL (0.1-1.0); BLOOD UREA NITROGEN 3 MG/DL (7-18); BUN/CREATININE RATIO 6.3 (10.0-20.0); CALCIUM 7.6 MG/DL (8.5-10.1); CHLORIDE 107 MMOL/L (99-107); CHOLESTEROL 157 MG/DL (0-200); CREATININE 0.48 MG/DL (0.40-0.90); GLUCOSE 93 MG/DL (70-104); HDL CHOLESTEROL 80 MG/DL (35-60); LDL CHOLESTEROL 57 MG/DL (50-100); MAGNESIUM 1.9 MG/DL (1.5-2.4); PHOSPHORUS 2.8 MG/DL (2.3-4.5); POTASSIUM 3.5 MMOL/L (3.5-5.1); SODIUM 141 MMOL/L (135-145); TOTAL CARBON DIOXIDE 24.7 MMOL/L (24-32); TOTAL PROTEIN 5.7 G/DL (6.4-8.2); TRIGLYCERIDES 52 MG/DL (20-135); eCRCL 146 ML/MIN; eGFR > 90 ML/MIN
[2024-08-15] MEDS: LORazepam 2 mg/ml vial IV PRN (21:26)
[2024-08-16 02:00] VITALS: BP 113/55; PULSE 62; RESP 16; TEMP 98.4; O2SAT 99
[2024-08-16 06:31] LABS: INR 1.1 INR
[2024-08-16 06:49] LABS: BASOPHILS % (AUTO) 0.6 % (0-1); EOSINOPHILS # (AUTO) 0.3 X10'3 (0-0.9); EOSINOPHILS % (AUTO) 7.1 % (0-6); HEMATOCRIT 33.3 % (35.0-45.0); HEMOGLOBIN 11.2 g/dl (12.0-16.0); LYMPHOCYTES # (AUTO) 1.8 X10'3 (1.1-4.8); MEAN CORPUSCULAR HEMOGLOBIN 29.7 PG (27.0-31.0); MEAN CORPUSCULAR HGB CONC 33.6 g/dL (33.0-36.5); MEAN CORPUSCULAR VOLUME 88.3 FL (78-98); MEAN PLATELET VOLUME 10.5 FL (7.4-10.4); MONOCYTES # (AUTO) 0.3 X10'3 (0-0.9); MONOCYTES % (AUTO) 7.2 % (2-12); NEUTROPHILS # (AUTO) 1.4 X10'3 (1.8-7.7); NEUTROPHILS % (AUTO) 37.1 % (42-75); PLATELET COUNT 221 X10'3 (140-440); RED BLOOD COUNT 3.77 X10'6 (4.20-5.60); RED CELL DISTRIBUTION WIDTH 16.2 % (11.5-14.5); WHITE BLOOD COUNT 3.7 X10'3 (4.5-11.0)
[2024-08-16 06:50] LABS: ALANINE AMINOTRANSFERASE 104 U/L (12-78); ALBUMIN 2.8 G/DL (3.4-5.0); ALBUMIN/GLOBULIN RATIO 0.8 (1.1-1.5); ALKALINE PHOSPHATASE 72 IU/L (46-116); ANION GAP 8 (8-16); ASPARTATE AMINO TRANSFERASE 57 U/L (10-37); BILIRUBIN,TOTAL 0.4 MG/DL (0.1-1.0); BLOOD UREA NITROGEN 3 MG/DL (7-18); BUN/CREATININE RATIO 5.1 (10.0-20.0); CALCIUM 8.1 MG/DL (8.5-10.1); CHLORIDE 106 MMOL/L (99-107); CREATININE 0.59 MG/DL (0.40-0.90); GLUCOSE 105 MG/DL (70-104); MAGNESIUM 1.8 MG/DL (1.5-2.4); PHOSPHORUS 3.3 MG/DL (2.3-4.5); POTASSIUM 3.9 MMOL/L (3.5-5.1); SODIUM 140 MMOL/L (135-145); TOTAL CARBON DIOXIDE 25.6 MMOL/L (24-32); TOTAL PROTEIN 6.1 G/DL (6.4-8.2); eCRCL 119 ML/MIN; eGFR > 90 ML/MIN
[2024-08-16] MEDS ORDERED: NALT50TA5 PO (11:17)
[2024-08-16] MEDS: naltrexone 50mg tablet PO SCH (12:04)
[2024-08-16 12:05] VITALS: RESP 18; O2SAT 99
== END 2024-08-16 12:56 | disposition home or self-care (01) | DRG 775 ==
LOC: ER 17:26 → ED HOLD 08-14 02:19 → PCU 3S 08-14 14:09
PROVIDERS: ADMIT Internal Medicine Critical Care Medicine; ATTEND Internal Medicine
DX: F10.231 Alcohol dependence with withdrawal delirium (principal); D64.9 Anemia, unspecified; F32.A Depression, unspecified; F43.10 Post-traumatic stress disorder, unspecified; F41.9 Anxiety disorder, unspecified; R00.0 Tachycardia, unspecified; R55 Syncope and collapse; Z79.899 Other long term (current) drug therapy; Z88.1 Allergy status to other antibiotic agents; Z88.2 Allergy status to sulfonamides
CPT/HCPCS: 36415; 80053; 80061; 80305; 80320; 81001; 81025; 82948; 83690; 83735; 84100; 84132; 85025; 85610; 87081; 93005; 97116; 97161; 99285; A6258; G0378; J1644; J2060; J3411; J3490; J7030

== ENCOUNTER 2024-08-24 16:32 | Emergency (ER) | payer SELFPAY ==
[~2024-08-24] VITALS: Ht 165.1 cm; Wt 75.0 kg
[~2024-08-24 16:32] MED LIST changes: -BENZ1TAB78 PO; +BUSP15TA7 PO; -BUSP5TAB26 PO; -CLON1TAB12 PO; -DIVA125T2 PO; +DIVA250T4 PO; -DIVA250T8 PO; +DIVA500T2 PO; -FOLI0.4T14 PO; -ONDA-243 PO; -ZIPR20CA12 PO; +ZIPR40CA14; -thiamine tablet PO
[2024-08-24 17:01] LABS: BASOPHILS % (AUTO) 0.5 % (0-1); EOSINOPHILS # (AUTO) 0.1 X10'3 (0-0.9); HEMATOCRIT 43.7 % (35.0-45.0); HEMOGLOBIN 14.5 g/dl (12.0-16.0); LYMPHOCYTES # (AUTO) 2.6 X10'3 (1.1-4.8); LYMPHOCYTES % (AUTO) 44.7 % (21-51); MEAN CORPUSCULAR HEMOGLOBIN 29.3 PG (27.0-31.0); MEAN CORPUSCULAR HGB CONC 33.1 g/dL (33.0-36.5); MEAN CORPUSCULAR VOLUME 88.6 FL (78-98); MEAN PLATELET VOLUME 9.9 FL (7.4-10.4); MONOCYTES # (AUTO) 0.2 X10'3 (0-0.9); NEUTROPHILS # (AUTO) 2.9 X10'3 (1.8-7.7); NEUTROPHILS % (AUTO) 49.8 % (42-75); PLATELET COUNT 411 X10'3 (140-440); RED BLOOD COUNT 4.94 X10'6 (4.20-5.60); RED CELL DISTRIBUTION WIDTH 16.2 % (11.5-14.5); WHITE BLOOD COUNT 5.9 X10'3 (4.5-11.0)
[2024-08-24 17:26] LABS: ALBUMIN 4.3 G/DL (3.4-5.0); ANION GAP 17 (8-16); BLOOD UREA NITROGEN 9 MG/DL (7-18); BUN/CREATININE RATIO 11.7 (10.0-20.0); CALCIUM 8.7 MG/DL (8.5-10.1); CHLORIDE 105 MMOL/L (99-107); CREATININE 0.77 MG/DL (0.40-0.90); GLUCOSE 91 MG/DL (70-104); SODIUM 145 MMOL/L (135-145); THYROID STIMULATING HORMONE 0.81 ulU/ml (0.34-4.50); TOTAL CARBON DIOXIDE 23.3 MMOL/L (24-32); eCRCL 91 ML/MIN; eGFR 85 ML/MIN
[2024-08-24 17:29] LABS: ETHANOL 416 MG/DL (<10)
[2024-08-24 18:13] LABS: BILIRUBIN,URINE NEGATIVE (Neg); CLARITY,URINE CLEAR (Clear); COLOR,URINE YELLOW (Yellow); GLUCOSE, URINE NEGATIVE (Neg); KETONES,URINE TRACE mg/dl (Neg); LEUKOCYTE ESTERASE ,URINE SMALL (Neg); NITRITES, URINE NEGATIVE (Neg); OCCULT BLOOD,URINE TRACE-INTACT (Neg); PROTEIN,URINE NEGATIVE (Neg); UROBILINOGEN,URINE 0.2 E.U/dL (0.2-1.0)
[2024-08-24 18:17] LABS: UA COLLECTION TYPE VOIDED
[2024-08-24 18:21] LABS: BACTERIA,URINE 1+ /HPF (Neg)
[2024-08-24 18:22] LABS: SQUAMOUS EPITHELIAL CELL,UR MODERATE /LPF (FEW)
[2024-08-24 18:35] LABS: URINE HCG NEGATIVE (NEG)
[2024-08-24 18:42] LABS: URINE AMPHETAMINE SCREEN NEGATIVE (Neg); URINE BARBITUATE SCREEN NEGATIVE (Neg); URINE BENZODIAZEPINES SCREEN NEGATIVE (Neg); URINE CANNABINOID SCREEN NEGATIVE (Neg); URINE COCAINE SCREEN NEGATIVE (Neg); URINE METHADONE SCREEN NEGATIVE (Neg); URINE OPIATE SCREEN NEGATIVE (Neg); URINE PHENCYCLIDINE SCREEN NEGATIVE (Neg)
[2024-08-24] MEDS: LORazepam 1 MG tablet PO PRN ×2 (20:05→23:13)
[2024-08-24] MEDS: normal saline 1000ml 1,000 ML IV ONE ×2 (20:05→22:47)
[2024-08-24] MEDS: nitrofuran monohydrate/nitrofuran macrocrysal 100 MG (MacroBID) capsule PO ONE (20:11)
[2024-08-24] MEDS ORDERED: NALT50TA5 PO (22:07)
[2024-08-25 06:06] VITALS: BP 104/65; PULSE 98; TEMP 97.8; O2SAT 96
[2024-08-25 08:20] VITALS: RESP 16
[2024-08-25] MEDS: naltrexone 50mg tablet PO SCH (09:25)
[2024-08-25] MEDS: busPIRone 15mg tablet PO SCH (09:25)
[2024-08-25] MEDS: divalproex sod 250mg ER (24-hour) tablet PO SCH (09:26)
[2024-08-25] MEDS ORDERED: NITR100C6 PO (13:00)
[2024-08-25] MEDS ORDERED: divalproex sodium 500mg tablet.DR PO SCH (21:00)
== END 2024-08-25 13:45 | disposition home or self-care (01) ==
LOC: ER 16:33
DX: R45.851 Suicidal ideations (principal); Z20.822 Contact with and (suspected) exposure to COVID-19; F10.129 Alcohol abuse with intoxication, unspecified; N39.0 Urinary tract infection, site not specified; Z88.1 Allergy status to other antibiotic agents; Z88.2 Allergy status to sulfonamides; Z79.899 Other long term (current) drug therapy; Y90.9 Presence of alcohol in blood, level not specified
CPT/HCPCS: 36415; 80048; 80305; 80320; 81001; 81025; 84443; 85025; 87811; 96360; 96361; 99285; J7030